=== PATIENT | male | born 1975 | race Two or more races ===

== ENCOUNTER 2023-02-27 09:18 | Day surgery (SDC) | payer OTHER ==
[~2023-02-27] VITALS: Ht 165.1 cm; Wt 59.9 kg
[~2023-02-27 09:18] MED LIST: CRESTOR20 MG PO; PROTONIX40 MG PO
== END 2023-02-27 15:20 | disposition home or self-care (01) ==
LOC: CIR.AMB 09:18
PROVIDERS: ATTEND Otolaryngology Otology & Neurotology
DX: H66.92 Otitis media, unspecified, left ear (principal); H72.92 Unspecified perforation of tympanic membrane, left ear; D68.9 Coagulation defect, unspecified